=== PATIENT | male | born 1955 | race African-American/Black ===

== ENCOUNTER 2017-05-02 10:55 | Inpatient (IN) | payer OTHER ==
[2017-05-02 12:59] LABS: URINE APPEARANCE CLOUDY; URINE BILIRUBIN NEGATIVE (NEGATIVE); URINE BLOOD 1+ (NEGATIVE); URINE COLOR YELLOW; URINE GLUCOSE (UA) NEGATIVE (NEGATIVE); URINE KETONE NEGATIVE (NEGATIVE); URINE NITRITE NEGATIVE (NEGATIVE); URINE PROTEIN NEGATIVE (NEGATIVE); URINE UROBILINOGEN NEGATIVE mg/dL (0.2-1.0)
[2017-05-02 13:09] LABS: URINE BACTERIA RARE /hpf (NONE SEEN); URINE WBC 529 /hpf (3-5)
--- NOTE | 2017-05-02 13:13 | PDOC ---
Attending Attestation - Resident Resident Name: Narciso Garcia - ED Attending Attestation I have performed the following: I have examined & evaluated the patient, The case was reviewed & discussed with the resident, I agree w/resident's findings & plan, Exceptions are as noted - HPI HPI: 05/02/17 13:19 61yo M hx MR, neurogenic bladder, urethral stricture c/b UTIs p/w urethral discharge. Pt saw Dr. Walters (urology) this AM who recommended a suprapubic catheter but pt declined. Pt presents to the ED due to the discharge. Denies fevers, chills, CP, SOB, abd pain, N/V/D, headache, weakness. - Physicial Exam PE: 05/02/17 13:26 GENERAL: Awake, alert, in no acute distress HEAD: No signs of trauma EYES: PERRLA, EOMI, sclera anicteric, conjunctiva clear ENT: Auricles normal inspection, hearing grossly normal, nares patent, oropharynx clear without exudates. Moist mucosa NECK: Normal ROM, supple, no lymphadenopathy, JVD, or masses LUNGS: Breath sounds equal, clear to auscultation bilaterally. No wheezes, and no crackles HEART: Regular rate and rhythm, normal S1 and S2, no murmurs, rubs or gallops ABDOMEN: Soft, +suprapubic ttp, normoactive bowel sounds. No guarding, no rebound. No masses : No CVAT, no active penile discharge EXTREMITIES: Normal range of motion, no edema. No clubbing or cyanosis. No cords, erythema, or tenderness NEUROLOGICAL: Normal speech, cranial nerves intact, negative pronator drift, 5/ 5 strength in all 4 extremities, normal sensation to light touch in all 4 extremities, normal cerebellar exam, normal gait, normal reflexes and tone SKIN: Warm, Dry, normal turgor, no rashes or lesions noted. - Medical Decision Making 05/02/17 13:33 61-year-old male with a history of neurogenic bladder and urethral stricture presents with purulent urethral discharge. Exam with suprapubic ttp. Patient likely has complicated UTI due to stricture and neurogenic bladder. UA is positive for UTI. Will cover with abx and admit for likely suprapubic cath. -labs -UCx -uro c/s -admit
[2017-05-02] MEDS ORDERED: CEFTRIAXONE 1 GM in DEXTROSE 5%-WATER - 100 ML IVPB ONE (13:39)
--- NOTE | 2017-05-02 13:57 | PDOC ---
History of Present Illness - General Chief Complaint: Urinary Problem Stated Complaint: IRREGULAR PENILE DISCHARGE Time Seen by Provider: 05/02/17 11:53 History Source: Patient Exam Limitations: No Limitations - History of Present Illness Initial Comments: 05/02/17 13:46 61M with schizophrenia, neurogenic bladder and urethral stricture presents with urethral pyuric discharge since this morning. Patient is coming from the office Dr. Erwin where he refused a suprapubic catheter placement due association with painful memory of the catheter dislodging a few years ago while admitted. Patient denies pain. He normally can "dribble enough urine to go by". He lives alone but accompanied by [employer]. History of recurrent UTi's Patient chronically wears a diaper because of incontinent dribbling 05/02/17 15:27 05/02/17 16:00 CONTACT Miss Munoz, his [employer] Representatives at Past History - Past Medical History Allergies/Adverse Reactions: Allergies Allergy/AdvReac Type Severity Reaction Status Date / Time No Known Allergies Allergy Verified 05/02/17 11:18 Home Medications: Ambulatory Orders Acetaminophen [Tylenol] 500 mg PO DAILY 05/02/17 Ferrous Gluconate [Fergon -] 324 mg PO DAILY 05/02/17 Olanzapine 20 mg PO DAILY 05/02/17 Tamsulosin HCl [Flomax] 0.4 mg PO DAILY 05/02/17 - Suicide/Smoking/Psychosocial Hx Smoking History: Current every day smoker Have you smoked in the past 12 months: Yes Number of Cigarettes Smoked Daily: 10 Information on smoking cessation initiated: No Review of Systems - Review of Systems Able to Perform ROS?: Yes Constitutional: No: Symptoms Reported HEENTM: No: Symptoms Reported Respiratory: No: Symptoms reported Cardiac (ROS): No: Symptoms Reported ABD/GI: No: Symptoms Reported : Yes: Dysuria, Discharge, Frequency, Incontinence. No: Burning *Physical Exam - Vital Signs Last Vital Signs Temp Pulse Resp BP Pulse Ox 98.3 F 92 H 19 138/80 100 05/02/17 11:18 05/02/17 11:18 05/02/17 11:18 05/02/17 11:18 05/02/17 11:18 - Physical Exam General Appearance: Yes: Disheveled, Mild Distress HEENT: positive: EOMI, PARISA Neck: negative: Tender Respiratory/Chest: positive: Lungs Clear, Normal Breath Sounds. negative: Chest Tender Cardiovascular: positive: Regular Rhythm, Regular Rate, S1, S2 Male Genitalia: positive: discharge (No acute discharge on exam but poor hygiene with dried whitish residue all over area covered by diaper..) ED Treatment Course - LABORATORY CBC & Chemistry Diagram: 05/02/17 13:45 05/02/17 13:45 - ADDITIONAL ORDERS Additional order review: Laboratory Results 05/02/17 12:30 Urine Color Yellow Urine Appearance Cloudy Urine pH 6.0 Ur Specific [place] 1.012 Urine Protein Negative Urine Glucose (UA) Negative Urine Ketones Negative Urine Blood 1+ H Urine Nitrite Negative Urine Bilirubin Negative Urine Urobilinogen Negative Urine RBC 40-60 Urine WBC 529 Ur Epithelial Cells Rare Urine Bacteria Rare Medical Decision Making - Medical Decision Making 05/02/17 15:35 61M With pmh of urethral stricture presenting with UTi sent labs and lytes Urine positive for wbc, cloudy indicative of infection Pending cultures. Pending Bladder scan. This is a complicated UTI that will require placement of suprapubic catheter following treatment of infection. Spoke to Dr. Erwin who referred the patient the on-call urologist on staff Dr. Parkinson, who agreed to see the patient following admission. Spoke to Dr. Danna Salazar, hospitalist, who agreed to admit the patient. 05/02/17 15:58 05/02/17 15:59 05/02/17 15:59 CONTACT Miss Munoz, his [employer] Representatives at with updates. 05/02/17 20:23 *DC/Admit/Observation/Transfer Diagnosis at time of Disposition: Complicated UTI (urinary tract infection), Neurogenic bladder disorder, Urethral stricture - Discharge Dispostion Admit: Yes
[2017-05-02] MEDS ORDERED: CEFTRIAXONE 50 ML ONE (14:03)
[2017-05-02 14:11] LABS: EOSINOPHIL 2.6 % (0-4.5); MEAN CELL VOLUME 81.8 fl (80-96); MEAN PLT VOLUME 7.1 fl (7.5-11.1); NEUTROPHILS 72.4 % (42.8-82.8); PLATELET COUNT 415 K/MM3 (134-434); RDW 14.8 % (11.9-15.9); WHITE BLOOD COUNT 8.3 K/mm3 (4.0-10.0)
[2017-05-02 14:28] LABS: INR 1.08 (0.82-1.09); PROTHROMBIN TIME (PATIENT) 12.2 SEC (9.98-11.88)
[2017-05-02 14:31] LABS: ACTIVATED PTT 30.5 SECONDS (26.9-34.4)
--- NOTE | 2017-05-02 14:37 | HP ---
Admitting History and Physical - Admission History of Present Illness: 61yo M hx MR, neurogenic bladder, urethral stricture c/b UTIs p/w urethral discharge. Pt saw Dr. Walters (urology) this AM who recommended a suprapubic catheter but pt declined. Pt presents to the ED due to the discharge, dysuria. Denies fevers, chills, CP, SOB, abd pain, N/V/D, headache, weakness. ER has spoke to urology to get Suprapubic cath placement= patient agreeable to get cath placed/ History Source: Patient - Past Medical History Renal/: Yes: Neurogenic Bladder, Other (urethral stricture) - Smoking History Smoking history: Current every day smoker Have you smoked in the past 12 months: Yes Aproximately how many cigarettes per day: 10 Home Medications - Allergies Allergies/Adverse Reactions: Allergies Allergy/AdvReac Type Severity Reaction Status Date / Time No Known Allergies Allergy Verified 05/02/17 11:18 - Home Medications Home Medications: Ambulatory Orders Acetaminophen [Tylenol] 500 mg PO DAILY 05/02/17 Ferrous Gluconate [Fergon -] 324 mg PO DAILY 05/02/17 Olanzapine 20 mg PO DAILY 05/02/17 Tamsulosin HCl [Flomax] 0.4 mg PO DAILY 05/02/17 Review of Systems - Review of Systems Genitourinary: reports: Discharge, Dysuria Physical Examination Vital Signs: Vital Signs Temperature 98.3 F 05/02/17 11:18 Pulse Rate 92 H 05/02/17 11:18 Respiratory Rate 19 05/02/17 11:18 Blood Pressure 138/80 05/02/17 11:18 O2 Sat by Pulse Oximetry (%) 100 05/02/17 11:18 Constitutional: Yes: Calm Neck: Yes: Trachea Midline Cardiovascular: Yes: Regular Rate and Rhythm, S1, S2 Respiratory: Yes: CTA Bilaterally Gastrointestinal: Yes: Normal Bowel Sounds, Soft Edema: No Neurological: Yes: Alert, Oriented Labs: CBC, BMP 05/02/17 13:45 Problem List - Problems (1) Neurogenic bladder disorder Assessment/Plan: urology wants to place suprapubic cath iv abx urology on board Code(s): N31.9 - NEUROMUSCULAR DYSFUNCTION OF BLADDER, UNSPECIFIED (2) Urethral stricture Assessment/Plan: urology Code(s): N35.9 - URETHRAL STRICTURE, UNSPECIFIED (3) UTI (urinary tract infection) Assessment/Plan: iv abx tylenol prn Code(s): N39.0 - URINARY TRACT INFECTION, SITE NOT SPECIFIED
[2017-05-02 14:40] LABS: ALBUMIN 3.6 g/dl (3.4-5.0); ANION GAP 11 (8-16); CO2 22 mmol/L (21-32); CREATININE 1.2 mg/dL (0.7-1.3); GLUCOSE,RANDOM 106 mg/dL (74-106); SGOT/AST 8 U/L (15-37); SGPT/ALT 11 U/L (12-78)
[2017-05-02 14:42] LABS: ALK PHOS 137 U/L (45-117); BILIRUBIN,TOTAL 0.2 mg/dL (0.2-1.0); TOT PROT 8.7 g/dl (6.4-8.2)
[2017-05-02 14:52] LABS: CALCIUM 8.9 mg/dL (8.5-10.1)
[2017-05-02 21:14] LABS: URINE LEUK ESTERASE 2+ (NEGATIVE)
[2017-05-02 21:21] VITALS: BMI 21.6
[2017-05-02] MEDS ORDERED: PNEUMOC 13-VAL CONJ-DIP CRM/PF 0.5 ML DISP.SYRIN IM ONE (21:21)
[2017-05-02] MEDS ORDERED: PNEUMOCOCCAL 23 VACCINE 0.5 ML VIAL IM ONE (21:30)
[2017-05-02] MEDS ORDERED: FLU VACCINE QUAD 60 MCG/0.5 ML (MDV 17-18) IM ONE (21:30)
[2017-05-02] MEDS: OLANZapine 10 MG TABLET PO SCH (22:15)
[2017-05-03 07:57] LABS: BASOPHIL 0.3 % (0-2.0); EOSINOPHIL 3.8 % (0-4.5); MCH 27.4 pg (25.7-33.7); MCHC 33.5 g/dl (32.0-35.9); MEAN CELL VOLUME 81.8 fl (80-96); MEAN PLT VOLUME 7.2 fl (7.5-11.1); NEUTROPHILS 59.5 % (42.8-82.8); PLATELET COUNT 384 K/MM3 (134-434); RDW 14.9 % (11.9-15.9); WHITE BLOOD COUNT 6.5 K/mm3 (4.0-10.0)
[2017-05-03 09:03] LABS: ALBUMIN 3.1 g/dl (3.4-5.0); ANION GAP 9 (8-16); CALCIUM 8.5 mg/dL (8.5-10.1); CO2 24 mmol/L (21-32); CREATININE 1.1 mg/dL (0.7-1.3); GLUCOSE,RANDOM 85 mg/dL (74-106); PHOSPHOROUS 3.2 mg/dL (2.5-4.9); SGOT/AST 9 U/L (15-37); SGPT/ALT 8 U/L (12-78)
[2017-05-03 09:05] LABS: ALK PHOS 108 U/L (45-117); BILIRUBIN,TOTAL 0.4 mg/dL (0.2-1.0); TOT PROT 7.1 g/dl (6.4-8.2)
[2017-05-03] MEDS: CEFTRIAXONE 1 G/50 ML PREMIX 50 ML IVPB SCH (09:14)
--- NOTE | 2017-05-03 09:18 | PROC ---
Procedure Note Procedure: Supra pubic Cystotomy tube placement. Pt has h/o urethral stricture and is in urinary retention. Unable to insert urethral foely. Explained need for urinary drainage with supra pubic tube. Pt agrees to proceed. 1% lidocaiune into ski and sq tissue ove r supra pubic region. 2cmm horizontal incision made. Using spinal; needle the distendened bladder was identified Using 14 fr supra pubic catheter set the tube was inserted into the bladder without difficulty. 500 + cc of cloudy jammie urine drained. Tub sutureed in place. Dressing applied. Tolerated the procedure well..
[2017-05-03] MEDS ORDERED: ACETAMINOPHEN 325 MG TABLET (FP) PO PRN (09:29)
[2017-05-03] MEDS: GENTAMICIN 80 MG PREMIXED IVPB 80 MG/100 ML BAG IVPB SCH ×2 (11:12→18:05)
[2017-05-03] MEDS: DEXTROSE 5%-0.45% SALINE 1,000 ML IV SCH (11:13)
[2017-05-03] MEDS: ACETAMINOPHEN 325 MG TABLET (FP) PO PRN (11:33)
[2017-05-03] MEDS: oxyCODONE HCL 5 MG TABLET PO PRN (11:34)
--- NOTE | 2017-05-03 17:35 | PN ---
Progress Note, Physician Chief Complaint: Urinary retention, Neurogenic bladder History of Present Illness: Seen by Urology who placed supra-pubic bingham catheter at bedside which was dislodged while he was bending over this after noon at [address] on the stoma. Patient urinating small amounts NAD, no pain, sitting at the edge of the bed eating dinner. - Current Medication List Current Medications: Active Medications Acetaminophen (Tylenol -) 650 mg PO Q6H PRN PRN Reason: PAIN Last Admin: 05/03/17 11:33 Dose: 650 mg Acetaminophen (Tylenol -) 650 mg PO Q4H PRN PRN Reason: PAIN Stop: 05/04/17 09:19 CEFTRIAXONE 1 G/50 ML PREMIX (Ceftriaxone 1 Gm-D5w Bag) 50 mls @ 100 mls/hr IVPB DAILY REPLACED BY [facility] Last Admin: 05/03/17 09:14 Dose: 100 mls/hr Dextrose/Sodium Chloride (D5-1/2ns -) 1,000 mls @ 75 mls/hr IV ASDIR REPLACED BY [facility] Last Admin: 05/03/17 11:13 Dose: 75 mls/hr Gentamicin Sulfate/Sodium Chloride (Garamycin 80 Mg Premixed Ivpb -) 80 mg in 100 mls @ 100 mls/hr IVPB Q8H-IV [facility] Stop: 05/04/17 02:59 Last Admin: 05/03/17 11:12 Dose: 100 mls/hr Olanzapine (Zyprexa -) 20 mg PO HS REPLACED BY [facility] Last Admin: 05/02/17 22:15 Dose: 20 mg Oxycodone HCl (Roxicodone -) 10 mg PO Q4H PRN PRN Reason: PAIN Stop: 05/04/17 09:19 Last Admin: 05/03/17 11:34 Dose: 10 mg - Objective Vital Signs: Vital Signs Temperature 98.9 F 05/03/17 15:07 Pulse Rate 75 05/03/17 15:07 Respiratory Rate 18 05/03/17 15:07 Blood Pressure 102/56 05/03/17 15:07 O2 Sat by Pulse Oximetry (%) 100 05/02/17 22:00 Constitutional: Yes: Well Nourished, No Distress, Calm Cardiovascular: Yes: Regular Rate and Rhythm Respiratory: Yes: Regular Gastrointestinal: Yes: WNL Genitourinary: Yes: WNL Musculoskeletal: Yes: WNL Extremities: Yes: WNL Edema: No Peripheral Pulses WNL: Yes Neurological: Yes: Alert, Oriented Psychiatric: Yes: Alert, Oriented Labs: CBC, BMP 05/03/17 05:13 05/03/17 05:13 INR, PTT INR 1.08 (0.82-1.09) 05/02/17 13:45 Problem List - Problems (1) Neurogenic bladder disorder Assessment/Plan: -Monitor urinary out put -repeat bladder scan in 12 hours, if retaining more than 300 cc of urine, place bingham catheter. Code(s): N31.9 - NEUROMUSCULAR DYSFUNCTION OF BLADDER, UNSPECIFIED (2) UTI (urinary tract infection) Assessment/Plan: -UC: Microbiology 05/02/17 13:42 Blood Culture - Preliminary Blood - Peripheral Venous NO GROWTH OBTAINED AFTER 24 HOURS, INCUBATION TO CONTINUE FOR 4 DAYS. 05/02/17 13:45 Blood Culture - Preliminary Blood - Peripheral Venous NO GROWTH OBTAINED AFTER 24 HOURS, INCUBATION TO CONTINUE FOR 4 DAYS. 05/02/17 12:30 Urine Culture - Preliminary Urine - Urine Clean Catch Staphylococcus Coagulase Neg -IV abx -no leukocytosis -afebrile Code(s): N39.0 - URINARY TRACT INFECTION, SITE NOT SPECIFIED (3) Urethral stricture Code(s): N35.9 - URETHRAL STRICTURE, UNSPECIFIED Assessment/Plan see problem list
[2017-05-03] MEDS ORDERED: PT OWN MED DRAWER 7, Y5N ONE (21:30)
[2017-05-03] MEDS: OLANZapine 10 MG TABLET PO SCH (23:24)
[2017-05-04] MEDS ORDERED: PT OWN MED DRAWER 7, Y5N ONE (01:20)
[2017-05-04] MEDS: GENTAMICIN 80 MG PREMIXED IVPB 80 MG/100 ML BAG IVPB SCH (01:54)
[2017-05-04] MEDS ORDERED: TAMSULOSIN HCL 0.4 MG CAP.ER.24H (FP) PO ONE (04:48)
[2017-05-04] MEDS: oxyCODONE HCL 5 MG TABLET PO PRN (06:54)
[2017-05-04] MEDS: ACETAMINOPHEN 325 MG TABLET (FP) PO PRN (06:54)
[2017-05-04] MEDS: CEFTRIAXONE 1 G/50 ML PREMIX 50 ML IVPB SCH (10:21)
[2017-05-04] MEDS: DEXTROSE 5%-0.45% SALINE 1,000 ML IV SCH (10:23)
--- NOTE | 2017-05-04 16:58 | PN ---
Progress Note (short form) - Note Progress Note: ID Consult dictated Urinary retention/ obstructive uropathy HX Ureathral stricture Hx Neurogenic bladder UTI Await c/s Vancomycin 1gm IVPB q12h Urology follow up
--- NOTE | 2017-05-04 18:32 | PN ---
Progress Note, Physician Chief Complaint: Urinary retention, Neurogenic bladder History of Present Illness: Seen by Urology who placed supra-pubic bingham catheter at bedside which was dislodged while he was bending over this after noon at [address] on the stoma. Patient urinating small amounts NAD, no pain, sitting at the edge of the bed eating dinner. - Current Medication List Current Medications: Active Medications Acetaminophen (Tylenol -) 650 mg PO Q6H PRN PRN Reason: PAIN Last Admin: 05/04/17 06:54 Dose: 650 mg CEFTRIAXONE 1 G/50 ML PREMIX (Ceftriaxone 1 Gm-D5w Bag) 50 mls @ 100 mls/hr IVPB DAILY [facility] Last Admin: 05/04/17 10:21 Dose: 100 mls/hr Olanzapine (Zyprexa -) 20 mg PO HS [facility] Last Admin: 05/03/17 23:24 Dose: 20 mg Tamsulosin HCl (Flomax -) 0.4 mg PO DAILY@0830 [facility] - Objective Vital Signs: Vital Signs Temperature 98.6 F 05/04/17 14:00 Pulse Rate 73 05/04/17 14:00 Respiratory Rate 18 05/04/17 14:00 Blood Pressure 110/72 05/04/17 14:00 O2 Sat by Pulse Oximetry (%) 96 05/04/17 09:00 Constitutional: Yes: Well Nourished, No Distress, Calm Cardiovascular: Yes: Regular Rate and Rhythm Respiratory: Yes: Regular Gastrointestinal: Yes: Normal Bowel Sounds Labs: CBC, BMP 05/03/17 05:13 05/03/17 05:13 INR, PTT INR 1.08 (0.82-1.09) 05/02/17 13:45 Problem List - Problems (1) Neurogenic bladder disorder Assessment/Plan: -Chronic -has had supra pubic catheter in the past -Supra pubic catheter came out while he was bending over. Code(s): N31.9 - NEUROMUSCULAR DYSFUNCTION OF BLADDER, UNSPECIFIED (2) UTI (urinary tract infection) Assessment/Plan: UC pending Code(s): N39.0 - URINARY TRACT INFECTION, SITE NOT SPECIFIED (3) Urethral stricture Code(s): N35.9 - URETHRAL STRICTURE, UNSPECIFIED Assessment/Plan see problem list
[2017-05-04] MEDS: VANCOMYCIN 1,000 MG in DEXTROSE 5%-WATER - 250 ML IVPB SCH (20:34)
[2017-05-04] MEDS: OLANZapine 10 MG TABLET PO SCH (21:07)
[2017-05-05] MEDS: VANCOMYCIN 1,000 MG in DEXTROSE 5%-WATER - 250 ML IVPB SCH ×2 (06:50→19:18)
--- NOTE | 2017-05-05 07:11 | CONS ---
DATE OF CONSULTATION: DATE OF DICTATION: 05/04/2017 HISTORY OF PRESENT ILLNESS: The patient is a 61-year-old male evaluated for urinary tract infection. The patient has a history of neurogenic bladder, urethral stricture, and recurrent urinary tract infections. He was seen by his urologist prior to admission and was advised a suprapubic catheter. He declined this suggestion. In the interim, he had developed purulent discharge from his urethra. He presented to the emergency room where he was admitted with a diagnosis of acute urinary retention and recurrent urinary tract infection. He was seen in consultation by Urology. A suprapubic catheter was placed and greater than 500 mL of cloudy urine was obtained. Urine culture preliminarily is growing a coagulase-negative staph. He was empirically treated with ceftriaxone and gentamicin. His hospital course has been complicated by the dislodgement of the suprapubic catheter. At the present time, he is comfortable. He denies any suprapubic pain or abdominal pain. He states he is making small amounts of urine and is voiding them normally. He denies any associated fever or chills. PAST MEDICAL HISTORY: Positive for neurogenic bladder, history of urethral stricture, recurrent urinary tract infections, history of schizophrenia. ALLERGIES: No known allergies. SOCIAL HISTORY: Lives in the community. He denies tobacco, alcohol, or illicit drug use. SYSTEMS REVIEW: Neurologic: No loss of consciousness, seizure activity, or focal weakness. Cardiac: Negative chest pain or palpitations. Respiratory: Negative cough or sputum production. Gastrointestinal: Negative vomiting or diarrhea. Genitourinary: As per HPI. LABORATORY DATA: White count 6.5, hematocrit 34.1, platelet count 384. Urinalysis: White cells 529. BUN 12, creatinine 1.1. Blood cultures negative. Urine culture growing staph coagulase negative. Chlamydia and GC probes negative. PHYSICAL EXAMINATION:General: He is awake and alert. He is not acutely toxic appearing. In no acute distress. Vital Signs: Temperature 98.6, blood pressure 110/72, pulse 73, irregular, respirations 18 per minute. HEENT: Sclerae are anicteric. Cardiac: Heart sounds S1, S2. Lungs: Clear. Abdomen: Soft. There is suprapubic fullness but no tenderness on exam. No flank tenderness. Extremities: Negative for edema. IMPRESSION: 1. Urinary retention/obstructive uropathy. 2. History of urethral stricture. 3. History of neurogenic bladder. 4. Recurrent urinary tract infections. RECOMMENDATIONS: Await final identification of urine isolate. Start vancomycin 1 g IV piggyback every 12 hours. Urology followup with regard to need for replacement of the suprapubic catheter. Thank you. BRENDAN SKY M.D. [id number]
[2017-05-05] MEDS: TAMSULOSIN HCL 0.4 MG CAP.ER.24H (FP) PO SCH (08:06)
--- NOTE | 2017-05-05 10:51 | PN ---
Progress Note, Physician Chief Complaint: Urinary retention, Neurogenic bladder History of Present Illness: Seen by Urology who placed supra-pubic bingham catheter at bedside which was dislodged while he was bending over this after noon at [address] on the stoma. Patient urinating small amounts NAD, no pain, sitting at the edge of the bed eating dinner. - Current Medication List Current Medications: Active Medications Acetaminophen (Tylenol -) 650 mg PO Q6H PRN PRN Reason: PAIN Last Admin: 05/04/17 06:54 Dose: 650 mg Vancomycin HCl 1,000 mg/ (Dextrose) 250 mls @ 166.667 mls/hr IVPB Q12H [facility] Last Admin: 05/05/17 06:50 Dose: 166.667 mls/hr Olanzapine (Zyprexa -) 20 mg PO HS [facility] Last Admin: 05/04/17 21:07 Dose: 20 mg Tamsulosin HCl (Flomax -) 0.4 mg PO DAILY@0830 [facility] Last Admin: 05/05/17 08:06 Dose: 0.4 mg - Objective Vital Signs: Vital Signs Temperature 98.6 F 05/05/17 06:00 Pulse Rate 75 05/05/17 10:48 Respiratory Rate 15 05/05/17 10:48 Blood Pressure 105/75 05/05/17 10:48 O2 Sat by Pulse Oximetry (%) 100 05/05/17 10:48 Constitutional: Yes: Well Nourished, No Distress, Calm Labs: CBC, BMP 05/03/17 05:13 05/03/17 05:13 INR, PTT INR 1.08 (0.82-1.09) 05/02/17 13:45 Problem List - Problems (1) Neurogenic bladder disorder Assessment/Plan: -Urology has not seen the patient -needs supra pubic -unable to urinate Code(s): N31.9 - NEUROMUSCULAR DYSFUNCTION OF BLADDER, UNSPECIFIED (2) UTI (urinary tract infection) Code(s): N39.0 - URINARY TRACT INFECTION, SITE NOT SPECIFIED (3) Urethral stricture Code(s): N35.9 - URETHRAL STRICTURE, UNSPECIFIED
[2017-05-05] MEDS: ACETAMINOPHEN 325 MG TABLET (FP) PO PRN (13:31)
--- NOTE | 2017-05-05 16:46 | PN ---
Progress Note, Physician History of Present Illness: S/P replacement of suprapubic catheter No c/o suprapubic pain No fever/ chills Afebrile WBC WNL - Current Medication List Current Medications: Active Medications Acetaminophen (Tylenol -) 650 mg PO Q6H PRN PRN Reason: PAIN Last Admin: 05/05/17 13:31 Dose: 650 mg Vancomycin HCl 1,000 mg/ (Dextrose) 250 mls @ 166.667 mls/hr IVPB Q12H [facility] Last Admin: 05/05/17 06:50 Dose: 166.667 mls/hr Olanzapine (Zyprexa -) 20 mg PO HS [facility] Last Admin: 05/04/17 21:07 Dose: 20 mg Tamsulosin HCl (Flomax -) 0.4 mg PO DAILY@0830 [facility] Last Admin: 05/05/17 08:06 Dose: 0.4 mg - Objective Vital Signs: Vital Signs Temperature 98.3 F 05/05/17 16:00 Pulse Rate 65 05/05/17 16:00 Respiratory Rate 17 05/05/17 16:00 Blood Pressure 112/61 05/05/17 16:00 O2 Sat by Pulse Oximetry (%) 100 05/05/17 11:06 Constitutional: Yes: No Distress Eyes: Yes: Conjunctiva Clear Cardiovascular: Yes: Regular Rate and Rhythm, S1, S2 Respiratory: Yes: CTA Bilaterally Gastrointestinal: Yes: Normal Bowel Sounds, Soft, Other (suprapubic catheter in place). No: Tenderness Edema: No Labs: CBC, BMP 05/03/17 05:13 05/03/17 05:13 INR, PTT INR 1.08 (0.82-1.09) 05/02/17 13:45 Assessment/Plan Obstructive uropathy s/p suprapubic catheter Hx neurogenic bladder Hx ureathral stricture UTI Await final urine c/s Switch to po antibiotics am
[2017-05-05] MEDS ORDERED: PT OWN MED DRAWER 7, Y5N ONE ×2 (19:17→21:40)
[2017-05-05] MEDS: OLANZapine 10 MG TABLET PO SCH (23:15)
[2017-05-06] MEDS ORDERED: PT OWN MED DRAWER 7, Y5N ONE (06:18)
[2017-05-06] MEDS: ACETAMINOPHEN 325 MG TABLET (FP) PO PRN (06:41)
[2017-05-06] MEDS: VANCOMYCIN 1,000 MG in DEXTROSE 5%-WATER - 250 ML IVPB SCH (06:41)
[2017-05-06] MEDS: TAMSULOSIN HCL 0.4 MG CAP.ER.24H (FP) PO SCH (08:31)
--- NOTE | 2017-05-06 10:31 | PN ---
Progress Note, Physician History of Present Illness: OOB in chair Non toxic appearing S/P replacement of suprapubic catheter No c/o suprapubic pain No fever/ chills Afebrile WBC WNL BC no growth - Current Medication List Current Medications: Active Medications Acetaminophen (Tylenol -) 650 mg PO Q6H PRN PRN Reason: PAIN Last Admin: 05/06/17 06:41 Dose: 650 mg Vancomycin HCl 1,000 mg/ (Dextrose) 250 mls @ 166.667 mls/hr IVPB Q12H [facility] Last Admin: 05/06/17 06:41 Dose: 166.667 mls/hr Olanzapine (Zyprexa -) 20 mg PO HS [facility] Last Admin: 05/05/17 23:15 Dose: 20 mg Tamsulosin HCl (Flomax -) 0.4 mg PO DAILY@0830 [facility] Last Admin: 05/06/17 08:31 Dose: 0.4 mg - Objective Vital Signs: Vital Signs Temperature 98.0 F 05/06/17 09:51 Pulse Rate 80 05/06/17 09:51 Respiratory Rate 20 05/06/17 09:51 Blood Pressure 131/76 05/06/17 09:51 O2 Sat by Pulse Oximetry (%) 99 05/05/17 21:00 Constitutional: Yes: No Distress Eyes: Yes: Conjunctiva Clear Cardiovascular: Yes: Regular Rate and Rhythm, S1, S2 Respiratory: Yes: CTA Bilaterally Gastrointestinal: Yes: Normal Bowel Sounds, Soft, Other (no suprapubic tenderness SPT in place). No: Tenderness Edema: No Labs: CBC, BMP 05/03/17 05:13 05/03/17 05:13 INR, PTT INR 1.08 (0.82-1.09) 05/02/17 13:45 Assessment/Plan Obstructive uropathy s/p suprapubic catheter Hx neurogenic bladder Hx ureathral stricture UTI D/C IV antibiotics OK for discharge on macrobid 100mg po bid x 7d Outpatient Urology followup
[2017-05-06] MEDS: NITROFURANTOIN MACROCRYSTAL 50 MG CAPSULE (FP) PO SCH ×3 (11:12→17:31)
--- NOTE | 2017-05-06 17:27 | PN ---
Progress Note, Physician Chief Complaint: Urinary retention, Neurogenic bladder History of Present Illness: NAD self ambulatory got supra pubic cath placed yesterday Urology has not seen him since 05/03/17 wants to go home - Current Medication List Current Medications: Active Medications Acetaminophen (Tylenol -) 650 mg PO Q6H PRN PRN Reason: PAIN Last Admin: 05/06/17 06:41 Dose: 650 mg Nitrofurantoin Macrocrystals (Macrodantin -) 50 mg PO Q6HPO [facility] Last Admin: 05/06/17 11:13 Dose: Not Given Olanzapine (Zyprexa -) 20 mg PO HS [facility] Last Admin: 05/05/17 23:15 Dose: 20 mg Tamsulosin HCl (Flomax -) 0.4 mg PO DAILY@0830 [facility] Last Admin: 05/06/17 08:31 Dose: 0.4 mg - Objective Vital Signs: Vital Signs Temperature 98.0 F 05/06/17 09:51 Pulse Rate 80 05/06/17 09:51 Respiratory Rate 20 05/06/17 09:51 Blood Pressure 131/76 05/06/17 09:51 O2 Sat by Pulse Oximetry (%) 98 05/06/17 09:00 Constitutional: Yes: Well Nourished, No Distress, Calm Cardiovascular: Yes: Regular Rate and Rhythm Respiratory: Yes: Regular Genitourinary: Yes: [place] Present (suprapubic catheter) Edema: No Peripheral Pulses WNL: Yes Neurological: Yes: Alert, Oriented Psychiatric: Yes: Alert, Oriented Labs: CBC, BMP 05/03/17 05:13 05/03/17 05:13 INR, PTT INR 1.08 (0.82-1.09) 05/02/17 13:45 Problem List - Problems (1) Neurogenic bladder disorder Assessment/Plan: -has a supra pubic catheter -d/c home to f/u with urology outpatient Code(s): N31.9 - NEUROMUSCULAR DYSFUNCTION OF BLADDER, UNSPECIFIED (2) UTI (urinary tract infection) Assessment/Plan: -will order macrobid BID x 7 days Code(s): N39.0 - URINARY TRACT INFECTION, SITE NOT SPECIFIED (3) Urethral stricture Code(s): N35.9 - URETHRAL STRICTURE, UNSPECIFIED Assessment/Plan see problem list
[2017-05-06 17:53] VITALS: BP 122/84; PULSE 88; TEMP 99.3
== END 2017-05-06 17:59 | disposition home or self-care (01) | DRG 664 ==
LOC: JER 10:55 → JERBED 14:46 → J5S 18:33
PROVIDERS: ADMIT Student in an Organized Health Care Education/Training Program; ATTEND Student in an Organized Health Care Education/Training Program
PROC: 0T9B00Z Drainage of Bladder with Drainage Device, Open Approach (ICD-10-PCS; principal; 2017-05-03)
DX: N39.0 Urinary tract infection, site not specified (principal); F20.9 Schizophrenia, unspecified; N31.9 Neuromuscular dysfunction of bladder, unspecified; N35.9 Urethral stricture, unspecified; N39.498 Other specified urinary incontinence; F70 Mild intellectual disabilities; F17.210 Nicotine dependence, cigarettes, uncomplicated; R35.0 Frequency of micturition; N13.9 Obstructive and reflux uropathy, unspecified; R33.9 Retention of urine, unspecified
CPT/HCPCS: 36415; 51102; 80053; 81003; 81015; 83735; 84100; 85025; 85610; 85730; 86850; 86900; 86901; 87040; 87086; 87186; 87491; 87591; 90688; 90732; 97116-GP; 97161-GP; 99281-25; A4358; C1729; C1769; G0008; G0009

== ENCOUNTER 2018-04-05 12:07 | Day surgery (SDC) | payer OTHER ==
[2018-04-05 12:26] VITALS: BMI 25.8
[2018-04-05] MEDS ORDERED: PROPOFOL 20 ML ONE (13:25)
[2018-04-05] MEDS ORDERED: SUCCINYLCHOLINE CHLORIDE 200 MG/10 ML VIAL ONE (13:25)
[2018-04-05] MEDS ORDERED: MIDAZOLAM HCL 2 MG/2 ML SINGLE DOSE VIAL ONE (13:25)
[2018-04-05] MEDS ORDERED: LIDOCAINE HCL/PF 2% SDV 5ML VIAL ONE (13:26)
[2018-04-05] MEDS ORDERED: DEXAMETHASONE SOD PHOSPHATE 4 MG/1 ML VIAL ONE (13:26)
--- NOTE | 2018-04-05 13:40 | HP ---
History & Physical Update - History History: No Change - Physical Physical: No Change - Assessment Assessment: No Change - Plan Plan: No Change
[2018-04-05] MEDS ORDERED: ACETAMINOPHEN 1000 MG/100 ML VIAL (NON FORMULARY) IVPB ONE (13:43)
[2018-04-05] MEDS ORDERED: ceFAZolin SODIUM 1 GM VIAL IVPB ONE (13:45)
[2018-04-05] MEDS ORDERED: DEXTROSE 5%-0.45% SALINE 1,000 ML IV SCH (13:45)
[2018-04-05] MEDS ORDERED: IBUPROFEN 800 MG/8 ML IJ IVPB SCH (13:45)
[2018-04-05] MEDS ORDERED: ceFAZolin SODIUM 1 GM VIAL ONE (13:50)
[2018-04-05] MEDS ORDERED: ONDANSETRON 4 MG/2 ML VIAL IVPUSH PRN (14:50)
[2018-04-05] MEDS ORDERED: oxyCODONE HCL 5 MG TABLET PO PRN (14:50)
[2018-04-05] MEDS ORDERED: LACTATED RINGERS SOLUTION 1,000 ML IV SCH (15:00)
[2018-04-05 17:04] VITALS: BP 145/90; PULSE 77; TEMP 98
--- NOTE | 2018-05-05 09:37 | OP ---
DATE OF OPERATION: 04/05/2018 PREOPERATIVE DIAGNOSIS: Bulbar urethral stricture. POSTOPERATIVE DIAGNOSIS: Bulbar urethral stricture. PROCEDURE: Cystoscopy, direct vision internal urethrotomy, and replacement of suprapubic tube. SURGEON: Nikolas Velasquez MD FINDINGS: Bulbar urethral stricture. PREOPERATIVE INDICATIONS: The patient is a 62-year-old male with a history of a dense, bulbar urethral stricture, who has been managed with a suprapubic tube. He comes to the OR today for cystoscopy. OPERATION: Patient was brought to the OR, placed on the table in supine position, given general anesthesia and IV antibiotics, and placed in the modified lithotomy position. The groin was prepped and draped sterilely. Cystoscopy was performed. urethrotome was passed into the urethra. Distal urethra appeared to be okay, but the area of the bulbar urethra appeared to be completely obliterated urethral lumen. What appeared to be the true lumen was intubated with a wire. However, the wire could not be passed fully into the bladder. Incisions were made with a cold knife in that area to open up the passage. However, the wire could not be passed through. Cystoscopy was then performed through the suprapubic opening antegrade. Bladder itself appeared to be okay. No evidence of tumors or stones was seen, and the prostate and the prostatic urethra were visualized. The scope was passed into the prostatic urethra antegrade, and small lumen was seen. However, attempts to pass the wire through this lumen were unsuccessful as well. Procedure was then ended, and a suprapubic Mascorro was replaced. Patient was woken up. [id number]
== END 2018-04-05 17:05 | disposition home or self-care (01) ==
LOC: JASU-SURG 12:07
PROVIDERS: ATTEND Urology
PROC: 0T9B30Z Drainage of Bladder with Drainage Device, Percutaneous Approach (ICD-10-PCS; 2018-04-05)
PROC: 0TND8ZZ Release Urethra, Via Natural or Artificial Opening Endoscopic (ICD-10-PCS; principal; 2018-04-05 13:00)
DX: N35.812 Other bulbous urethral stricture, male (principal)
CPT/HCPCS: 94760